=== PATIENT | female | born 1935 | race Caucasian/White ===

== ENCOUNTER 2017-07-05 15:56 | Inpatient (IN) ==
[2017-07-05] MEDS ORDERED: ACETAMINOPHEN 325 MG TABLET PO PRN (17:29)
[2017-07-05] MEDS ORDERED: ONDANSETRON 4 MG/2 ML VIAL IV PRN (17:29)
[2017-07-05] MEDS: SODIUM CHLOR 0.9% KCL 40 MEQ 40 MEQ/1,000 ML BAG IV SCH (18:30)
[2017-07-05] MEDS ORDERED: INFLUENZA VIRUS VACCINE 0.5 ML SYRINGE IM ONE (18:56)
[2017-07-05] MEDS ORDERED: PNEUMOCOCCAL VACCINE (13 VALENT) 0.5 ML SYRINGE IM ONE (19:03)
[2017-07-05] MEDS: SULFAMETHOX/TRIMETHOPRIM 400-80 MG TABLET PO SCH (20:12)
[2017-07-06] MEDS: SODIUM CHLOR 0.9% KCL 40 MEQ 40 MEQ/1,000 ML BAG IV SCH ×3 (04:25→15:21)
[2017-07-06 06:14] LABS: Basophils # 0.1 10*3/uL (0.0-0.2); Basophils % 0.6 % (0.0-0.8); Eosinophils # 1.4 10*3/uL (0.0-0.87); Eosinophils % 13.3 % (0.00-10.9); Hematocrit 33.5 VOL% (35.7-47.0); Hemoglobin 11.2 GM/DL (12.0-16.0); Immature Granulocytes % 0.4 %; Immature Granulocytes Absolute 0.04 #; Lymphocytes # 1.5 10*3/uL (1.4-4.0); Lymphocytes % 14.5 % (21.3-54.2); Mean Corpuscular HGB Conc 33.4 GM/DL (32-36); Mean Corpuscular Hemoglobin 30 PG (27-34); Mean Corpuscular Volume 88.6 FL (87-102); Mean Platelet Volume 9.5 FL (9.6-12.0); Monocytes # 0.9 10*3/uL (0.11-0.8); Monocytes % 8.9 % (1.7-12.7); Neutrophils # 6.6 10*3/uL (1.4-7.4); Neutrophils % 62.3 % (38.7-73.9); Platelet Count 315 T/CUMM (130-400); Red Blood Count 3.78 MC/CUMM (3.8-5.5); Red Cell Distribution Width 14.4 % (9.3-17.3); White Blood Count 10.6 T/CUMM (4-12)
[2017-07-06 06:31] LABS: Calcium 9.1 MG/DL (8.5-10.1)
[2017-07-06 06:39] LABS: Eosinophils 11 % (0-10); Giant Platelets Few; Hypochromasia 1+; Lymphocytes 18 % (20-55); Platelet Estimate Adequate; Segmented Neutrophils 62 % (50-85); Total Cells Counted 100
[2017-07-06] MEDS ORDERED: FAMOTIDINE 20 MG TABLET PO ONE (07:45)
[2017-07-06] MEDS: SULFAMETHOX/TRIMETHOPRIM 400-80 MG TABLET PO SCH ×2 (09:05→20:19)
[2017-07-06] MEDS: MORPHINE 2 MG/1 ML SYRINGE IV PRN ×2 (09:30→17:50)
[2017-07-06] MEDS ORDERED: TISSUE ADHESIVE 1 EACH APPLICATOR TOP ONE (15:28)
[2017-07-06] MEDS ORDERED: ceFAZolin 1,000 MG VIAL ONE (15:28)
[2017-07-06] MEDS ORDERED: DEXAMETHASONE 10 MG/1 ML VIAL ONE ×2 (15:29→17:05)
[2017-07-06] MEDS ORDERED: DEXAMETHASONE 4 MG/1 ML VIAL ONE (15:29)
[2017-07-06] MEDS ORDERED: PROPOFOL 200 MG/20 ML VIAL IV ONE (17:04)
[2017-07-06] MEDS ORDERED: fentaNYL 100 MCG/2 ML VIAL ONE (17:04)
[2017-07-06] MEDS ORDERED: ePHEDrine 50 MG/ML AMP ONE (17:04)
[2017-07-06] MEDS ORDERED: ETOMIDATE 40 MG/20 ML VIAL IV ONE (17:05)
[2017-07-06] MEDS ORDERED: MIDAZOLAM 2 MG/2 ML VIAL ONE (17:05)
[2017-07-06] MEDS ORDERED: ONDANSETRON 4 MG/2 ML VIAL ONE (17:05)
[2017-07-06] MEDS: ceFAZolin 1,000 MG in SYRINGE 1 EACH IV SCH (23:53)
[2017-07-07] MEDS: SODIUM CHLOR 0.9% KCL 40 MEQ 40 MEQ/1,000 ML BAG IV SCH ×2 (02:21→12:26)
[2017-07-07] MEDS: MORPHINE 2 MG/1 ML SYRINGE IV PRN (05:58)
[2017-07-07] MEDS: ceFAZolin 1,000 MG in SYRINGE 1 EACH IV SCH ×2 (10:06→15:55)
[2017-07-07] MEDS: SULFAMETHOX/TRIMETHOPRIM 400-80 MG TABLET PO SCH (10:07)
[2017-07-07 11:14] VITALS: BP 103/60
[2017-07-08] MEDS ORDERED: CALCIUM (CARBONATE) 600 MG TABLET PO SCH (09:00)
[2017-07-08] MEDS ORDERED: CHOLECALCIFEROL 5,000 UNIT TABLET PO SCH (09:00)
[2017-07-14] MEDS ORDERED: RISEDRONATE 35 MG TABLET PO SCH (07:30)
== END 2017-07-07 15:40 | disposition home health service (06) | DRG 516 ==
LOC: SUATTDRO 16:17 → N.3E 16:17 → SUPCPDRO 16:17
PROVIDERS: ADMIT Internal Medicine; ATTEND Internal Medicine Infectious Disease

== ENCOUNTER 2017-07-08 09:37 | Inpatient (IN) ==
[2017-07-08 10:49] LABS: Basophils # 0.1 10*3/uL (0.0-0.2); Basophils % 0.7 % (0.0-0.8); Eosinophils # 1.2 10*3/uL (0.0-0.87); Eosinophils % 7.1 % (0.00-10.9); Hematocrit 34.2 VOL% (35.7-47.0); Hemoglobin 11.2 GM/DL (12.0-16.0); Immature Granulocytes % 0.8 %; Immature Granulocytes Absolute 0.13 #; Lymphocytes # 2.3 10*3/uL (1.4-4.0); Lymphocytes % 13.1 % (21.3-54.2); Mean Corpuscular HGB Conc 32.7 GM/DL (32-36); Mean Corpuscular Hemoglobin 30 PG (27-34); Mean Corpuscular Volume 90.2 FL (87-102); Mean Platelet Volume 9.5 FL (9.6-12.0); Monocytes # 1.3 10*3/uL (0.11-0.8); Monocytes % 7.3 % (1.7-12.7); Neutrophils # 12.2 10*3/uL (1.4-7.4); Platelet Count 325 T/CUMM (130-400); Red Blood Count 3.79 MC/CUMM (3.8-5.5); Red Cell Distribution Width 15.1 % (9.3-17.3); White Blood Count 17.2 T/CUMM (4-12)
[2017-07-08 10:54] LABS: Apearance,Urine CLEAR (Clear); Bilirubin,Urine Negative (Negative); Blood, Urine Negative (Negative); Glucose,Urine (UA) Negative (Negative); Hyaline Casts,Urine 1 /LPF (0-3); Ketones,Urine Negative (Negative); Mucus,Urine Occasional /LPF (Occasional); Nitrite,Urine Negative (Negative); Protein,Urine Negative; RBC,Urine 3 /HPF (0-4); Squamous Epithelial Cell,Urine Occasional /HPF (0-10); Urine Color Straw (Yellow); Urine Urobilinogen < 2.0 EU/DL (0.2-1.0); WBC,Urine 1 /HPF (0-6)
[2017-07-08 11:16] LABS: Albumin 3.4 G/DL (3.4-5.0); Bilirubin,Total 0.5 MG/DL (0.2-1.0); Calcium 9.4 MG/DL (8.5-10.1); Osmolality,Calculated 274.7 MOS/KG (273-304); Potassium 4.2 MMOL/L (3.5-5.1); Total Protein 7.1 G/DL (6.4-8.3)
[2017-07-08] MEDS ORDERED: ZALEPLON 5 MG CAPSULE PO PRN (14:42)
[2017-07-08] MEDS ORDERED: DOCUSATE SODIUM 100 MG CAPSULE PO PRN (14:42)
[2017-07-08] MEDS ORDERED: ONDANSETRON 4 MG/2 ML VIAL IV PRN (14:42)
[2017-07-08] MEDS ORDERED: LEVOFLOXACIN INJ 750 MG in PREMIX 1 EACH IV SCH ×2 (14:42→15:30)
[2017-07-08] MEDS: VANCOMYCIN INJ 1,000 MG in SODIUM CHLORIDE 0.9% 250 ML IV SCH (18:24)
[2017-07-09 05:01] LABS: Basophils # 0.1 10*3/uL (0.0-0.2); Basophils % 0.5 % (0.0-0.8); Eosinophils # 1.5 10*3/uL (0.0-0.87); Eosinophils % 12.8 % (0.00-10.9); Hematocrit 30.1 VOL% (35.7-47.0); Hemoglobin 10.2 GM/DL (12.0-16.0); Immature Granulocytes % 0.5 %; Immature Granulocytes Absolute 0.06 #; Lymphocytes # 2.2 10*3/uL (1.4-4.0); Lymphocytes % 18.4 % (21.3-54.2); Mean Corpuscular HGB Conc 33.9 GM/DL (32-36); Mean Corpuscular Hemoglobin 30 PG (27-34); Monocytes # 1.1 10*3/uL (0.11-0.8); Monocytes % 9.6 % (1.7-12.7); Neutrophils # 6.9 10*3/uL (1.4-7.4); Neutrophils % 58.2 % (38.7-73.9); Platelet Count 278 T/CUMM (130-400); Red Blood Count 3.42 MC/CUMM (3.8-5.5); Red Cell Distribution Width 14.8 % (9.3-17.3); White Blood Count 11.9 T/CUMM (4-12)
[2017-07-09 05:31] LABS: Calcium 8.6 MG/DL (8.5-10.1); Osmolality,Calculated 280.1 MOS/KG (273-304); Potassium 3.9 MMOL/L (3.5-5.1)
[2017-07-09 06:00] LABS: Eosinophils 14 % (0-10); Hypochromasia Slight; Lymphocytes 16 % (20-55); Microcytosis Slight; Segmented Neutrophils 62 % (50-85); Total Cells Counted 100
[2017-07-09 06:01] LABS: Ovalocytes Slight; Platelet Estimate Normal
[2017-07-09] MEDS: VANCOMYCIN INJ 1,000 MG in SODIUM CHLORIDE 0.9% 250 ML IV SCH (10:55)
[2017-07-10] MEDS: VANCOMYCIN INJ 1,000 MG in SODIUM CHLORIDE 0.9% 250 ML IV SCH ×2 (05:25→23:05)
[2017-07-10] MEDS ORDERED: ALUM/MAG/SIMETH/LIDO VISC 1:1 30 ML BOTTLE PO STA (07:38)
[2017-07-10] MEDS: LEVOFLOXACIN INJ 750 MG in PREMIX 1 EACH IV SCH (12:40)
[2017-07-11 04:19] LABS: Basophils # 0.1 10*3/uL (0.0-0.2); Basophils % 0.5 % (0.0-0.8); Eosinophils # 1.3 10*3/uL (0.0-0.87); Eosinophils % 11.8 % (0.00-10.9); Hematocrit 30.8 VOL% (35.7-47.0); Hemoglobin 10.2 GM/DL (12.0-16.0); Immature Granulocytes % 0.5 %; Immature Granulocytes Absolute 0.05 #; Lymphocytes # 1.8 10*3/uL (1.4-4.0); Lymphocytes % 16.7 % (21.3-54.2); Mean Corpuscular HGB Conc 33.1 GM/DL (32-36); Mean Corpuscular Hemoglobin 30 PG (27-34); Mean Platelet Volume 9.5 FL (9.6-12.0); Monocytes # 1.1 10*3/uL (0.11-0.8); Monocytes % 10.2 % (1.7-12.7); Neutrophils # 6.6 10*3/uL (1.4-7.4); Neutrophils % 60.3 % (38.7-73.9); Platelet Count 300 T/CUMM (130-400); Red Blood Count 3.46 MC/CUMM (3.8-5.5); Red Cell Distribution Width 14.4 % (9.3-17.3)
[2017-07-11 04:42] LABS: Eosinophils 10 % (0-10); Hypochromasia Slight; Lymphocytes 15 % (20-55); Segmented Neutrophils 68 % (50-85); Total Cells Counted 100
[2017-07-11 04:43] LABS: Microcytosis Slight; Platelet Estimate Normal
[2017-07-11 04:51] LABS: Calcium 8.9 MG/DL (8.5-10.1); Osmolality,Calculated 278.3 MOS/KG (273-304); Potassium 3.9 MMOL/L (3.5-5.1)
[2017-07-11] MEDS: LEVOFLOXACIN INJ 750 MG in PREMIX 1 EACH IV SCH (12:52)
[2017-07-11] MEDS: VANCOMYCIN INJ 1,000 MG in SODIUM CHLORIDE 0.9% 250 ML IV SCH (16:41)
[2017-07-11 18:24] LABS: Apearance,Urine CLEAR (Clear); Bilirubin,Urine Negative (Negative); Blood, Urine Negative (Negative); Glucose,Urine (UA) Negative (Negative); Ketones,Urine Negative (Negative); Mucus,Urine Occasional /LPF (Occasional); Nitrite,Urine Negative (Negative); Protein,Urine Negative; Squamous Epithelial Cell,Urine Occasional /HPF (0-10); Urine Color Straw (Yellow); Urine Specific Gravity 1.006 (1.001-1.035); Urine Urobilinogen < 2.0 EU/DL (0.2-1.0); WBC,Urine 3 /HPF (0-6)
[2017-07-12] MEDS: LEVOFLOXACIN INJ 750 MG in PREMIX 1 EACH IV SCH (14:17)
[2017-07-12] MEDS: VANCOMYCIN INJ 1,000 MG in SODIUM CHLORIDE 0.9% 250 ML IV SCH (14:17)
[2017-07-14 11:23] VITALS: BP 134/72
== END 2017-07-14 13:54 | disposition swing bed (61) | DRG 885 ==
LOC: N.ED 09:37 → N.EDINP 12:57 → SUATTDRO 12:57 → N.EDINP 14:32 → N.3E 14:37
PROVIDERS: ADMIT Internal Medicine Infectious Disease; ATTEND Internal Medicine Infectious Disease

== ENCOUNTER 2017-08-01 07:38 | Inpatient (IN) ==
[2017-08-01 09:43] LABS: Apearance,Urine CLEAR (Clear); Bilirubin,Urine Negative (Negative); Blood, Urine Negative (Negative); Glucose,Urine (UA) Negative (Negative); Ketones,Urine Negative (Negative); Mucus,Urine Occasional /LPF (Occasional); Nitrite,Urine Negative (Negative); Protein,Urine Negative; RBC,Urine 3 /HPF (0-4); Urine Color Yellow (Yellow); Urine Specific Gravity 1.013 (1.001-1.035); Urine Urobilinogen < 2.0 EU/DL (0.2-1.0); WBC,Urine 2 /HPF (0-6)
[2017-08-01] MEDS ORDERED: ONDANSETRON 4 MG/2 ML VIAL IV PRN (11:46)
[2017-08-01] MEDS ORDERED: MORPHINE 2 MG/1 ML SYRINGE IV PRN (11:46)
[2017-08-01] MEDS ORDERED: ZALEPLON 5 MG CAPSULE PO PRN (11:46)
[2017-08-01 12:01] LABS: Basophils # 0.1 10*3/uL (0.0-0.2); Basophils % 0.5 % (0.0-0.8); Eosinophils % 7.9 % (0.00-10.9); Hemoglobin 11.2 GM/DL (12.0-16.0); Immature Granulocytes % 0.4 %; Immature Granulocytes Absolute 0.05 #; Lymphocytes # 2.4 10*3/uL (1.4-4.0); Lymphocytes % 18.9 % (21.3-54.2); Mean Corpuscular HGB Conc 32.9 GM/DL (32-36); Mean Corpuscular Hemoglobin 29 PG (27-34); Mean Corpuscular Volume 87.4 FL (87-102); Mean Platelet Volume 9.8 FL (9.6-12.0); Monocytes # 1.1 10*3/uL (0.11-0.8); Monocytes % 8.2 % (1.7-12.7); Neutrophils # 8.2 10*3/uL (1.4-7.4); Neutrophils % 64.1 % (38.7-73.9); Platelet Count 413 T/CUMM (130-400); Red Blood Count 3.89 MC/CUMM (3.8-5.5); Red Cell Distribution Width 13.9 % (9.3-17.3); White Blood Count 12.7 T/CUMM (4-12)
[2017-08-01 12:23] LABS: Albumin 3.5 G/DL (3.4-5.0); Bilirubin,Total 0.7 MG/DL (0.2-1.0); Calcium 8.9 MG/DL (8.5-10.1); Osmolality,Calculated 277.7 MOS/KG (273-304); Potassium 3.9 MMOL/L (3.5-5.1); Total Protein 7.3 G/DL (6.4-8.3)
[2017-08-01] MEDS: LIDOCAINE 5% PATCH TRANSDERM SCH (12:48)
[2017-08-01 16:48] LABS: Immunoglobulin A 291 MG/DL (70-400); Immunoglobulin G 734 MG/DL (700-1600); Immunoglobulin M 164 MG/DL (40-230)
[2017-08-01] MEDS: DEXAMETHASONE 4 MG/1 ML VIAL IV SCH ×2 (17:29→22:09)
[2017-08-02] MEDS: DEXAMETHASONE 4 MG/1 ML VIAL IV SCH ×4 (03:59→20:16)
[2017-08-02 06:37] LABS: INR 0.9
[2017-08-02 07:56] LABS: Total Protein (Chem) 7.2 G/DL (6.4-8.3)
[2017-08-02 09:10] LABS: Albumin (SPE) Rel % 55.8 %; Alpha 1 (SPE) 0.3 G/DL (0.1-0.4); Alpha 1 (SPE) Rel % 4.7 %; Alpha 2 (SPE) 1.2 G/DL (0.4-1.0); Beta (SPE) 0.8 G/DL (0.5-1.1); Beta (SPE) Rel % 11.4 %; Gamma (SPE) 0.9 G/DL (0.7-1.7); Gamma (SPE) Rel % 12.1 %
[2017-08-02 10:58] LABS: Cancer Antigen 19-9 21.3 U/ML (0-37); Carcinoembryonic Antigen 6.5 NG/ML (0.0-5.0)
[2017-08-02] MEDS: VALSARTAN 80 MG TABLET PO SCH (11:26)
[2017-08-02] MEDS: ROSUVASTATIN 20 MG TABLET PO SCH (11:26)
[2017-08-02] MEDS: PANTOPRAZOLE 40 MG TABLET PO SCH (11:26)
[2017-08-02] MEDS: LIDOCAINE 5% PATCH TRANSDERM SCH (11:27)
[2017-08-03] MEDS: DEXAMETHASONE 4 MG/1 ML VIAL IV SCH ×4 (03:22→20:08)
[2017-08-03 06:44] LABS: Calcium 8.3 MG/DL (8.5-10.1); Osmolality,Calculated 285.5 MOS/KG (273-304); Potassium 4.3 MMOL/L (3.5-5.1)
[2017-08-03] MEDS: VALSARTAN 80 MG TABLET PO SCH (08:26)
[2017-08-03] MEDS: ROSUVASTATIN 20 MG TABLET PO SCH (08:26)
[2017-08-03] MEDS: LIDOCAINE 5% PATCH TRANSDERM SCH (08:26)
[2017-08-03] MEDS: PANTOPRAZOLE 40 MG TABLET PO SCH (08:26)
[2017-08-03 11:10] LABS: Immuno Free Light Chain Kappa 2.66 MG/DL (0.33-1.94); Immuno Free Light Chain Lambda 1.69 MG/DL (0.57-2.63); Immuno Free Light Chain Ratio 1.57 MG/DL (0.26-1.65)
[2017-08-03] MEDS ORDERED: TUBERCULIN SKIN TEST 0.1 ML SYRINGE INTRADERM ONE (12:30)
[2017-08-04] MEDS: DEXAMETHASONE 4 MG/1 ML VIAL IV SCH ×4 (02:10→20:35)
[2017-08-04] MEDS: IBUPROFEN 800 MG TABLET PO PRN (04:49)
[2017-08-04] MEDS: ROSUVASTATIN 20 MG TABLET PO SCH (08:27)
[2017-08-04] MEDS: VALSARTAN 80 MG TABLET PO SCH (08:27)
[2017-08-04] MEDS: PANTOPRAZOLE 40 MG TABLET PO SCH (08:27)
[2017-08-04] MEDS ORDERED: TRIAMCINOLONE ACETONIDE 40 MG/1 ML VIAL ONE (12:39)
[2017-08-04] MEDS ORDERED: LIDOCAINE 1% 5 ML VIAL ONE ×2 (12:39→12:49)
[2017-08-04] MEDS ORDERED: PROPOFOL 200 MG/20 ML VIAL IV ONE (15:08)
[2017-08-04] MEDS ORDERED: ONDANSETRON 4 MG/2 ML VIAL ONE (15:09)
[2017-08-04] MEDS ORDERED: MIDAZOLAM 2 MG/2 ML VIAL ONE (15:09)
[2017-08-04] MEDS ORDERED: fentaNYL 100 MCG/2 ML VIAL ONE (15:09)
[2017-08-04] MEDS ORDERED: PHENYLEPHRINE 10 MG/1 ML VIAL IV ONE (15:09)
[2017-08-04] MEDS ORDERED: ETOMIDATE 40 MG/20 ML VIAL IV ONE (15:09)
[2017-08-04] MEDS ORDERED: DEXAMETHASONE 10 MG/1 ML VIAL ONE (15:09)
[2017-08-04] MEDS: LIDOCAINE 5% PATCH TRANSDERM SCH (15:42)
[2017-08-05 00:03] LABS: Collection Time,Urine 24 HOURS; Total Volume,Urine 675 ML (400-2000)
[2017-08-05 00:16] LABS: Total Protein 24 Hr Ur Result 202 MG/24HR (0-149.1)
[2017-08-05] MEDS: DEXAMETHASONE 4 MG/1 ML VIAL IV SCH ×4 (03:05→20:51)
[2017-08-05] MEDS: IBUPROFEN 800 MG TABLET PO PRN ×2 (05:13→19:50)
[2017-08-05] MEDS: VALSARTAN 80 MG TABLET PO SCH (09:21)
[2017-08-05] MEDS: LIDOCAINE 5% PATCH TRANSDERM SCH (09:22)
[2017-08-05] MEDS: ROSUVASTATIN 20 MG TABLET PO SCH (09:22)
[2017-08-05] MEDS: PANTOPRAZOLE 40 MG TABLET PO SCH (09:22)
[2017-08-06] MEDS: DEXAMETHASONE 4 MG/1 ML VIAL IV SCH ×4 (03:27→21:18)
[2017-08-06] MEDS: PANTOPRAZOLE 40 MG TABLET PO SCH (09:15)
[2017-08-06] MEDS: LIDOCAINE 5% PATCH TRANSDERM SCH (09:15)
[2017-08-06] MEDS: ROSUVASTATIN 20 MG TABLET PO SCH (09:15)
[2017-08-06] MEDS: VALSARTAN 80 MG TABLET PO SCH (09:15)
[2017-08-06] MEDS: IBUPROFEN 800 MG TABLET PO PRN (15:01)
[2017-08-07] MEDS: DEXAMETHASONE 4 MG/1 ML VIAL IV SCH ×4 (02:28→20:20)
[2017-08-07] MEDS: LIDOCAINE 5% PATCH TRANSDERM SCH (09:28)
[2017-08-07] MEDS: ROSUVASTATIN 20 MG TABLET PO SCH (09:28)
[2017-08-07] MEDS: PANTOPRAZOLE 40 MG TABLET PO SCH (09:28)
[2017-08-07] MEDS: VALSARTAN 80 MG TABLET PO SCH (09:28)
[2017-08-07 09:44] LABS: 24 Hr Protein (Bench) 202 MG/24HR (0-149.1)
[2017-08-08] MEDS: DEXAMETHASONE 4 MG/1 ML VIAL IV SCH ×4 (04:38→21:12)
[2017-08-08] MEDS: ROSUVASTATIN 20 MG TABLET PO SCH (08:22)
[2017-08-08] MEDS: VALSARTAN 80 MG TABLET PO SCH (08:22)
[2017-08-08] MEDS: PANTOPRAZOLE 40 MG TABLET PO SCH (08:22)
[2017-08-08] MEDS: LIDOCAINE 5% PATCH TRANSDERM SCH (08:25)
[2017-08-09] MEDS: DEXAMETHASONE 4 MG/1 ML VIAL IV SCH ×2 (03:18→09:10)
[2017-08-09 05:44] LABS: Basophils # 0.1 10*3/uL (0.0-0.2); Basophils % 0.2 % (0.0-0.8); Hematocrit 34.6 VOL% (35.7-47.0); Hemoglobin 11.7 GM/DL (12.0-16.0); Immature Granulocytes % 2.8 %; Immature Granulocytes Absolute 0.73 #; Lymphocytes % 3.8 % (21.3-54.2); Mean Corpuscular HGB Conc 33.8 GM/DL (32-36); Mean Corpuscular Hemoglobin 29 PG (27-34); Mean Corpuscular Volume 85.6 FL (87-102); Mean Platelet Volume 9.7 FL (9.6-12.0); Monocytes # 1.2 10*3/uL (0.11-0.8); Monocytes % 4.5 % (1.7-12.7); Neutrophils # 23.2 10*3/uL (1.4-7.4); Neutrophils % 88.7 % (38.7-73.9); Platelet Count 403 T/CUMM (130-400); Red Blood Count 4.04 MC/CUMM (3.8-5.5); Red Cell Distribution Width 13.9 % (9.3-17.3); White Blood Count 26.1 T/CUMM (4-12)
[2017-08-09 06:11] LABS: Hypochromasia 1+; Lymphocytes 3 % (20-55); Microcytosis Slight; Platelet Estimate Adequate; Segmented Neutrophils 92 % (50-85); Total Cells Counted 100
[2017-08-09 06:14] LABS: Calcium 8.2 MG/DL (8.5-10.1); Osmolality,Calculated 281.8 MOS/KG (273-304); Potassium 4.7 MMOL/L (3.5-5.1)
[2017-08-09 08:20] VITALS: BP 120/87
[2017-08-09] MEDS: ROSUVASTATIN 20 MG TABLET PO SCH (09:10)
[2017-08-09] MEDS: PANTOPRAZOLE 40 MG TABLET PO SCH (09:10)
[2017-08-09] MEDS: VALSARTAN 80 MG TABLET PO SCH (09:10)
[2017-08-09] MEDS: LIDOCAINE 5% PATCH TRANSDERM SCH (09:15)
== END 2017-08-09 11:38 | DRG 478 ==
LOC: N.ED 07:38 → SUATTDRO 10:57 → N.EDINP 10:57 → N.2E 12:40
PROVIDERS: ADMIT Family Medicine; ATTEND Internal Medicine Infectious Disease